=== PATIENT | male | born 1995 | race Caucasian/White ===

== ENCOUNTER 2016-08-05 23:10 | Emergency (ER) | payer MEDICAID ==
[~2016-08-05] VITALS: Ht 165.1 cm; Wt 94.3 kg
[2016-08-05 23:15] VITALS: BP 137/78
[2016-08-05] MEDS ORDERED: ONDANSETRON 4 MG TAB.RAPDIS ONE (23:26)
[2016-08-05] MEDS ORDERED: HYDROCODONE/APAP 10/325MG 1 EA TABLET ONE (23:26)
[2016-08-05] MEDS ORDERED: ONDANSETRON 4 MG TAB.RAPDIS SL ONE (23:30)
[2016-08-05] MEDS ORDERED: HYDROCODONE/APAP 10/325MG 1 EA TABLET PO ONE (23:30)
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
== END 2016-08-06 01:11 | disposition home or self-care (01) ==
LOC: ER 23:10
DX: S93.491A Sprain of other ligament of right ankle, initial encounter (principal); S93.691A Other sprain of right foot, initial encounter; W18.30XA Fall on same level, unspecified, initial encounter; Y93.89 Activity, other specified; Y92.89 Other specified places as the place of occurrence of the external cause; Y99.8 Other external cause status
CPT/HCPCS: 29515; 73610; 73630; 99284; A4606; Q0162; Z7610

== ENCOUNTER 2018-04-01 01:22 | Emergency (ER) | payer MEDICAID, OTHER ==
[~2018-04-01] VITALS: Ht 172.7 cm; Wt 97.5 kg
[2018-04-01 01:28] VITALS: BP 125/65
[2018-04-01] MEDS ORDERED: oxyCODONE/APAP (5/325 MG) 1 UDTAB TABLET ONE (01:35)
[2018-04-01] MEDS ORDERED: TDAP [DIPH/PERTUSSIS/TET] 0.5 ML VIAL IM ONE ×2 (01:35→02:00)
[2018-04-01] MEDS ORDERED: BACI/NEOM/POLY B OINT PKT 1 UDPKT PACKET TP ONE (02:00)
[2018-04-01] MEDS ORDERED: oxyCODONE/APAP (5/325 MG) 1 UDTAB TABLET PO ONE (02:00)
== END 2018-04-01 02:05 ==
LOC: ER 01:24
DX: S70.311A Abrasion, right thigh, initial encounter (principal); S80.211A Abrasion, right knee, initial encounter; X58.XXXA Exposure to other specified factors, initial encounter; Y93.89 Activity, other specified; Y92.89 Other specified places as the place of occurrence of the external cause; Y99.8 Other external cause status
CPT/HCPCS: 73560; 73590; 90471; 90715; 99283; A4606; A6403; Z7610

== ENCOUNTER 2018-11-05 23:51 | Emergency (ER) | payer SELFPAY ==
[~2018-11-05] VITALS: Ht 172.7 cm; Wt 96.6 kg
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
[2018-11-06] MEDS ORDERED: HYDROCODONE/APAP 5/325MG 1 EACH TABLET PO ONE (01:00)
[2018-11-06] MEDS ORDERED: ONDANSETRON 4 MG TAB.RAPDIS SL ONE (01:00)
[2018-11-06] MEDS ORDERED: HYDROCODONE/APAP 5/325MG 1 EACH TABLET ONE (01:10)
[2018-11-06] MEDS ORDERED: ONDANSETRON 4 MG TAB.RAPDIS ONE (01:10)
--- NOTE | 2018-11-06 03:08 | NUR ---
NATHANIEL NÚÑEZ SPOKE TO ALEIDA FOR PENDING ANKLE XR
[2018-11-06 03:47] VITALS: BP 133/79
== END 2018-11-06 03:47 | disposition home or self-care (01) ==
LOC: ER 23:51
DX: M25.572 Pain in left ankle and joints of left foot (principal); L40.9 Psoriasis, unspecified
CPT/HCPCS: 73610; 99283; Q0162

== ENCOUNTER 2022-12-03 15:03 | Emergency (ER) | payer MEDICAID ==
[~2022-12-03] VITALS: Ht 172.7 cm; Wt 86.2 kg
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
--- NOTE | 2022-12-03 15:20 | NUR ---
IV INSERTED ON RT AC NO 20G ,BLOOD COLLECTED AND SEND TO LAB.
--- NOTE | 2022-12-03 15:25 | NUR ---
DR REAGAN AT BED SIDE.
[2022-12-03 15:52] LABS: BASOPHILS # (AUTO) 0.1 K/uL (0.0-0.2); BASOPHILS % (AUTO) 0.7 % (0.0-2.0); EOSINOPHILS % (AUTO) 1.1 % (0.0-6.0); HEMATOCRIT 43 % (39-51); HEMOGLOBIN 14.1 g/dL (13.5-17.5); LYMPHOCYTES # (AUTO) 2.1 K/uL (0.8-4.8); LYMPHOCYTES % (AUTO) 25.4 % (20.0-44.0); MEAN CORPUSCULAR HGB CONC 32 g/dl (31.0-36.0); MEAN CORPUSCULAR VOLUME 80 fL (80-96); MONOCYTES # (AUTO) 0.5 K/uL (0.1-1.30); NEUTROPHILS # (AUTO) 5.6 K/uL (1.8-8.9); NEUTROPHILS % (AUTO) 66.8 % (43.0-81.0); PLATELET COUNT (AUTO) 338 K/uL (150-450); RED BLOOD CELL COUNT(AUTO) 5.45 MIL/uL (4.5-6.0); WHITE BLOOD COUNT (AUTO) 8.3 K/uL (4.3-11.0)
--- NOTE | 2022-12-03 16:07 | NUR ---
EMT AT BED SIDE FOR CLEANING THE WOUND
[2022-12-03 16:12] LABS: CALCIUM, SERUM 9.2 mg/dL (8.5-10.1); CARBON DIOXIDE 28 mmol/L (21-32); CHLORIDE 104 mmol/L (98-107); CREATININE 0.9 mg/dL (0.6-1.3); GLUCOSE 112 mg/dL (74-106); POTASSIUM 3.5 mmol/L (3.5-5.1); SODIUM SERUM 140 mmol/L (136-145); UREA NITROGEN, BLOOD 7 mg/dL (7-18)
[2022-12-03 16:18] LABS: ALANINE AMINOTRANSFERASE 23 U/L (12-78); ALBUMIN 3.7 g/dL (3.4-5.0); ALKALINE PHOSPHATASE 143 U/L (46-116); ASPARTATE AMINOTRANSFERASE 16 U/L (15-37); BILIRUBIN,DIRECT 0.1 mg/dL (0.0-0.2); BILIRUBIN,TOTAL 0.4 mg/dL (0.2-1.0); TOTAL PROTEIN, SERUM 8.1 g/dL (6.4-8.2)
[2022-12-03 17:23] VITALS: BP 124/74; TEMP 97.9; O2SAT 100
--- NOTE | 2022-12-03 17:24 | NUR ---
IV removed. Catheter intact and site benign. Pressure and 4x4 applied to site. No bleeding noted.
--- NOTE | 2022-12-03 17:24 | NUR ---
Patient discharged to home in stable condition. Written and verbal after care instructions given. Patient verbalizes understanding of instruction.
== END 2022-12-03 17:24 | disposition home or self-care (01) ==
LOC: ER 15:17
DX: R07.89 Other chest pain (principal)
CPT/HCPCS: 99285; 71045; 93005; 85025; 80048; 80076; 36415; 84484; A6403